=== PATIENT | female | born 1975 | race Two or more races ===

== ENCOUNTER 2024-11-19 14:21 | Emergency (ER) | payer OTHER ==
[~2024-11-19] VITALS: Ht 152.4 cm; Wt 78.0 kg
[2024-11-19] MEDS ORDERED: NORVASC10 MG PO (15:43)
[2024-11-19] MEDS ORDERED: TOPROL XL200 MG (15:43)
[2024-11-19] MEDS ORDERED: HYDRALAZINE HCL50 MG PO (15:44)
[2024-11-19] MEDS ORDERED: HYDROCHLOROTHIA25 MG PO (15:45)
[2024-11-19] MEDS ORDERED: 0.9 % SODIUM CHLORIDE 1,000 ML IV STA (16:21)
[2024-11-19 16:43] LABS: HEMATOCRIT 31.6 % (36.0-45.00); HEMOGLOBIN 10.7 g/dL (12.0-15.00); MEAN CELL VOLUME 84.7 fL (80.00-100.00); MEAN CORPUSCULAR HEMOGLOBIN 28.5 pg (27.00-32.0); MEAN CORPUSCULAR HGB CONC 33.7 g/dl (32.0-36.0); PLATELET COUNT 367 K/uL (150-450); RED BLOOD COUNT 3.74 M/uL (4.00-6.00); RED CELL DISTRIBUTION WIDTH 14.6 % (11.5-14.5)
== END 2024-11-19 17:14 | disposition home or self-care (01) ==
LOC: ER 14:24
PROVIDERS: Emergency Medicine
DX: N93.8 Other specified abnormal uterine and vaginal bleeding (principal); I10 Essential (primary) hypertension